=== PATIENT | female | born 1970 | race Caucasian/White ===

== ENCOUNTER 2017-05-18 07:21 | Day surgery (SDC) | payer OTHER ==
[~2017-05-18] VITALS: Ht 162.6 cm; Wt 76.2 kg
[2017-05-18] MEDS ORDERED: SIMETHICONE 40 MG/0.6 ML ML ONE (07:56)
[2017-05-18 08:05] LABS: HCG,QUAL RESULT NEGATIVE (NEGATIVE)
[2017-05-18] MEDS: MIDAZOLAM HCL 5 MG/5 ML VIAL ONE ×2 (08:30→08:34)
[2017-05-18] MEDS: fentaNYL CITRATE/PF 100 MCG/2 ML AMP ONE ×3 (08:30→08:37)
[2017-05-18] MEDS ORDERED: fentaNYL CITRATE/PF 100 MCG/2 ML AMP ONE (08:53)
[2017-05-18 14:10] VITALS: BP_SYST 124
== END 2017-05-18 16:00 | disposition home or self-care (01) ==
LOC: SMU 07:21 → SDS 07:21
PROVIDERS: ATTEND Surgery
DX: Z12.11 Encounter for screening for malignant neoplasm of colon (principal); K64.8 Other hemorrhoids; K57.30 Diverticulosis of large intestine without perforation or abscess without bleeding; F41.9 Anxiety disorder, unspecified
CPT/HCPCS: 45378; 84703; J2250; J3010; J7030